=== PATIENT | male | born 1950 | race Caucasian/White ===

== ENCOUNTER → 2018-01-01 | Outpatient (CLI) | payer MEDICARE ==
[~2018-01-01] MED LIST: FLONASE ALLERG9.9 ML NAS; SPIRIVA18 MCG PO
== END | disposition home or self-care (01) ==
LOC: LAB 11:17
DX: C61 Malignant neoplasm of prostate (principal)

== ENCOUNTER → 2018-01-24 | Outpatient (CLI) | payer MEDICARE ==
[2018-01-24 14:52] LABS: CREATININE 1.39 mg/dL (0.70-1.30)
== END | disposition home or self-care (01) ==
LOC: LAB 14:20
PROVIDERS: Urology
DX: C61 Malignant neoplasm of prostate (principal); C64.2 Malignant neoplasm of left kidney, except renal pelvis; R91.8 Other nonspecific abnormal finding of lung field; Z90.5 Acquired absence of kidney

== ENCOUNTER → 2018-01-25 | Outpatient (CLI) | payer MEDICARE | END | disposition home or self-care (01) | LOC: CT 03:24 | DX: K42.9 Umbilical hernia without obstruction or gangrene (principal); N28.1 Cyst of kidney, acquired; S22.39XA Fracture of one rib, unspecified side, initial encounter for closed fracture; X58.XXXA Exposure to other specified factors, initial encounter; Y93.89 Activity, other specified; Y92.89 Other specified places as the place of occurrence of the external cause; Y99.8 Other external cause status; Z90.5 Acquired absence of kidney; Z98.890 Other specified postprocedural states; Z85.46 Personal history of malignant neoplasm of prostate; Z85.53 Personal history of malignant neoplasm of renal pelvis ==

== ENCOUNTER 2021-12-10 12:48 | Emergency (ER) | payer MEDICARE ==
[~2021-12-10] VITALS: Ht 177.8 cm; Wt 129.3 kg
[2021-12-10 13:27] VITALS: BP 90/61
[2021-12-10] MEDS ORDERED: DULERA 200 MCG8.8 GM INH (13:35)
[2021-12-10] MEDS ORDERED: CARTIA XT180 MG PO (13:36)
[2021-12-10 13:38] LABS: BASO % 0.3 % (0.0-1.0); EOS # 0.1 10*3/uL (0.0-0.4); HEMATOCRIT 44.4 % (42.0-52.0); LYMPH # 1.3 10*3/uL (1.3-4.4); MEAN CELL VOLUME 86.5 fl (80.0-94.0); MEAN CORPUSCULAR HGB 27.7 pg (27.0-31.0); MEAN PLATELET VOLUME 9.6 fl (9.6-12.3); MONO # 0.5 10*3/uL (0.1-1.0); NEUT # 4.3 10*3/uL (2.3-7.9); NEUT % 69.5 % (47.0-73.0); PLATELET COUNT AUTOMATED 150 10*3/uL (130-400); RED BLOOD COUNT 5.13 10*6/uL (4.50-5.90); RED CELL DISTRI WIDTH 14.4 % (0-14.5); WHITE BLOOD COUNT 6.2 10*3/uL (4.8-10.8)
[2021-12-10] MEDS ORDERED: TAMSULOSIN HCL0.4 MG PO (13:38)
[2021-12-10 13:50] LABS: ACT PARTIAL THROMBO TIME 27.9 SECONDS (20.0-32.1); INTERNATIONAL NORM RATIO 1.1 (2.0-3.5)
[2021-12-10 14:03] LABS: ALKALINE PHOSPHATASE 73 U/L (45-117); BUN 13 mg/dl (7-24); CHLORIDE 106 mmol/L (98-107); CREATININE 1.29 mg/dL (0.70-1.30); POTASSIUM 4.2 mmol/L (3.5-5.1); SGOT/AST 10 IU/L (3-35); SGPT/ALT 11 U/L (12-78); SODIUM 136 mmol/L (136-145); TOTAL PROTEIN 6.5 gm/dL (6.4-8.2)
[2021-12-10] MEDS ORDERED: ELIQUIS5 M2 PO (15:34)
[2021-12-10] MEDS ORDERED: CARDIZEM CD240 M1 PO (15:35)
[2021-12-10 16:21] VITALS: BP 99/71
== END 2021-12-10 16:26 | disposition home or self-care (01) ==
LOC: ED 12:48
PROVIDERS: Student in an Organized Health Care Education/Training Program
DX: I26.99 Other pulmonary embolism without acute cor pulmonale (principal); I48.20 Chronic atrial fibrillation, unspecified; C78.5 Secondary malignant neoplasm of large intestine and rectum; F17.200 Nicotine dependence, unspecified, uncomplicated; Z79.899 Other long term (current) drug therapy

== ENCOUNTER 2022-09-02 13:18 | Inpatient (IN) | payer MEDICARE ==
[~2022-09-02] VITALS: Ht 182.9 cm; Wt 140.3 kg
[2022-09-02] VITALS (7 sets, daily range): BP systolic 88–129; BP diastolic 61–92
[~2022-09-02 13:18] MED LIST changes: +ALFUZOSIN HCL E10 MG PO; +CAPECITABINE150 MG PO; +CARDIZEM CD240 M1 PO; +CARTIA XT180 MG PO; +DULERA 200 MCG8.8 GM INH; +ELIQUIS5 M1 PO; +ELIQUIS5 M2 PO; +FINASTERIDE5 M1 PO; +Ipratropium Brom3 ML NEB; +LASIX20 MG PO; +LEVOFLOXACIN750 M2 PO; +METOPROLOL SUCC25 M2 PO; +PANTOPRAZOLE SO40 MG PO; +PIPERACIL-TAZO4.5 G1 IV; +QUETIAPINE FUMA25 MG PO; +TAMSULOSIN HCL0.4 MG PO; +VANC1PIG IV
[2022-09-02 13:58] LABS: HEMATOCRIT 38.2 % (42.0-52.0); MEAN CELL VOLUME 93.6 fl (80.0-94.0); MEAN CORPUSCULAR HGB CONC 28.8 g/dl (33.0-37.0); NUCLEATED RED BLOOD CELL 0.1 % (0.0-0.0); PLATELET COUNT AUTOMATED 132 10*3/uL (130-400); RED BLOOD COUNT 4.08 10*6/uL (4.50-5.90)
[2022-09-02 14:04] LABS: ARTERIAL BLOOD GAS PO2 142.2 (80-90)
[2022-09-02 14:07] LABS: ARTERIAL BLOOD GAS PH 7.19 (7.35-7.45)
[2022-09-02 14:10] LABS: MANUAL DIFF REFLEX YES; WHITE BLOOD COUNT 42.6 10*3/uL (4.8-10.8)
[2022-09-02 14:12] LABS: ACT PARTIAL THROMBO TIME 22.4 SECONDS (20.0-32.1); CREATININE 2.09 mg/dL (0.70-1.30); INTERNATIONAL NORM RATIO 1.3 (2.0-3.5); TOTAL PROTEIN 6.7 gm/dL (6.4-8.2)
[2022-09-02 14:24] LABS: PLATELET SUFFICIENCY NORMAL (NORMAL); TOTAL CELLS COUNTED 100 #CELLS
[2022-09-02 14:25] LABS: BURR CELLS FEW; OVALOCYTES FEW; TARGET CELLS FEW
[2022-09-02 14:39] LABS: BILIRUBIN Negative (Negative); BLOOD Negative (Negative); CLARITY Clear (Clear); COLOR Dark Yellow (Yellow); GLUCOSE Negative (Negative); KETONE Negative (Negative); LEUKO ESTERASE Negative (Negative); NITRITE Negative (Negative); SPECIFIC GRAVITY 1.025 (1.001-1.030)
[2022-09-02 14:48] LABS: BACTERIA 1+
[2022-09-02 14:49] LABS: EPITHELIAL CELLS 0-2
[2022-09-02] MEDS ORDERED: NEULASTA6 MG/0.6 M IV (15:25)
[2022-09-02] MEDS ORDERED: BUMETANIDE2 MG PO (15:26)
[2022-09-02] MEDS ORDERED: LASIX40 MG PO (15:27)
[2022-09-02] MEDS ORDERED: ALFUZOSIN HCL E10 MG PO (15:28)
[2022-09-02] MEDS ORDERED: POTASSIUM CHLO10 ME4 PO (15:28)
[2022-09-02] MEDS ORDERED: DULERA 200 MCG-13 GM INH (15:30)
[2022-09-02 17:13] LABS: ABG BASE EXCESS 0.5 mmol/L (-2.0-2.0); ARTERIAL BLOOD GAS PH 7.239 (7.35-7.45); ARTERIAL BLOOD GAS PO2 78.5 (80-90)
[2022-09-03] VITALS (11 sets, daily range): BP systolic 90–118; BP diastolic 45–69
[2022-09-03 05:30] LABS: CREATININE 1.77 mg/dL (0.70-1.30); POTASSIUM 5.1 mmol/L (3.5-5.1); TOTAL PROTEIN 6.3 gm/dL (6.4-8.2)
[2022-09-03 06:25] LABS: HEMATOCRIT 36.2 % (42.0-52.0); MEAN CELL VOLUME 95.3 fl (80.0-94.0); MEAN CORPUSCULAR HGB 27.4 pg (27.0-31.0); MEAN CORPUSCULAR HGB CONC 28.7 g/dl (33.0-37.0); MEAN PLATELET VOLUME 10.1 fl (9.6-12.3); NUCLEATED RED BLOOD CELL 0.1 % (0.0-0.0); NUCLEATED RED BLOOD CELL 0.1 10*3/uL (0.0-0.0); PLATELET COUNT AUTOMATED 111 10*3/uL (130-400); RED CELL DISTRI WIDTH 20.1 % (0-14.5)
[2022-09-03 06:34] LABS: WHITE BLOOD COUNT 43.9 10*3/uL (4.8-10.8)
[2022-09-03 06:35] LABS: MANUAL DIFF REFLEX YES
[2022-09-03 07:03] LABS: OVALOCYTES MODERATE; PLATELET SUFFICIENCY LOW (NORMAL); TOTAL CELLS COUNTED 100 #CELLS
[2022-09-04] VITALS: BP 88/48
[2022-09-04 04:00] VITALS: BP 95/50
[2022-09-04 05:52] LABS: CREATININE 2.3 mg/dL (0.70-1.30)
[2022-09-04 06:01] LABS: POTASSIUM 6.1 mmol/L (3.5-5.1)
[2022-09-04 08:00] VITALS: BP 110/50
[2022-09-04 08:07] LABS: ABG BASE EXCESS -3.2 mmol/L (-2.0-2.0); ARTERIAL BLOOD GAS PO2 78.7 (80-90)
[2022-09-04 08:14] LABS: ARTERIAL BLOOD GAS PH 7.024 (7.35-7.45)
[2022-09-04 08:16] LABS: MEAN CORPUSCULAR HGB 27.2 pg (27.0-31.0); MEAN PLATELET VOLUME 10.5 fl (9.6-12.3); NUCLEATED RED BLOOD CELL 0.1 % (0.0-0.0); NUCLEATED RED BLOOD CELL 0.1 10*3/uL (0.0-0.0); RED BLOOD COUNT 3.68 10*6/uL (4.50-5.90); RED CELL DISTRI WIDTH 19.9 % (0-14.5)
[2022-09-04 08:22] LABS: MANUAL DIFF REFLEX YES
[2022-09-04 08:23] LABS: MEAN CELL VOLUME 100.5 fl (80.0-94.0); PLATELET COUNT AUTOMATED 88 10*3/uL (130-400)
[2022-09-04 08:32] LABS: WHITE BLOOD COUNT 57.8 10*3/uL (4.8-10.8)
[2022-09-04 08:45] LABS: TOTAL CELLS COUNTED 100 #CELLS; TOXIC GRANULATION MODERATE; VACUOLATION OF NEUTROPHILS SLIGHT
[2022-09-04 08:46] LABS: BURR CELLS FEW; OVALOCYTES FEW; PLATELET SUFFICIENCY LOW (NORMAL); POLYCHROMASIA SLIGHT; SCHISTOCYTES FEW
[2022-09-04 10:20] LABS: CREATININE 2.47 mg/dL (0.70-1.30); POTASSIUM 5.7 mmol/L (3.5-5.1)
== END 2022-09-04 12:42 | DRG 871 ==
LOC: ED 13:18 → EDHOLD 14:44 → ICCU 14:44 → EDHOLD 14:45 → ICCU 15:07
PROVIDERS: Emergency Medicine; Internal Medicine Critical Care Medicine; Student in an Organized Health Care Education/Training Program; ADMIT Internal Medicine; ATTEND Internal Medicine
PROC: 5A09457 Assistance with Respiratory Ventilation, 24-96 Consecutive Hours, Continuous Positive Airway Pressure (ICD-10-PCS; principal; 2022-09-02)
DX: A41.9 Sepsis, unspecified organism (principal); G93.41 Metabolic encephalopathy; J96.01 Acute respiratory failure with hypoxia; J96.02 Acute respiratory failure with hypercapnia; N17.0 Acute kidney failure with tubular necrosis; J18.9 Pneumonia, unspecified organism; I50.23 Acute on chronic systolic (congestive) heart failure; E87.20 Acidosis, unspecified; C18.9 Malignant neoplasm of colon, unspecified; I42.9 Cardiomyopathy, unspecified; J44.0 Chronic obstructive pulmonary disease with (acute) lower respiratory infection; R65.20 Severe sepsis without septic shock; Z66 Do not resuscitate; I48.91 Unspecified atrial fibrillation; D64.9 Anemia, unspecified; R73.9 Hyperglycemia, unspecified; I11.0 Hypertensive heart disease with heart failure; E83.41 Hypermagnesemia; R74.01 Elevation of levels of liver transaminase levels; F17.200 Nicotine dependence, unspecified, uncomplicated; D69.6 Thrombocytopenia, unspecified; R41.0 Disorientation, unspecified; I08.1 Rheumatic disorders of both mitral and tricuspid valves; Z51.5 Encounter for palliative care; Z85.038 Personal history of other malignant neoplasm of large intestine; Z90.49 Acquired absence of other specified parts of digestive tract; Z90.5 Acquired absence of kidney; Z83.6 Family history of other diseases of the respiratory system; Z80.51 Family history of malignant neoplasm of kidney